=== PATIENT | female | born 1970 | race Caucasian/White ===

== ENCOUNTER 2016-07-31 20:31 | Inpatient (IN) | payer OTHER ==
[2016-07-31] VITALS (7 sets, daily range): BP systolic 105–201; BP diastolic 68–136; PULSE 84–100; RESP 16–22; TEMP 97.7–98; O2SAT 97–98
[~2016-07-31 20:31] MED LIST: ARIP1TAB5; LEXA10TA; MUSCLE RELAXANT; Z.0.UNKNOWN
[2016-07-31] MEDS ORDERED: HEPARIN SODIUM - IV 10,000 UNITS/10 ML VIAL IV STA (20:53)
[2016-07-31] MEDS ORDERED: ASPIRIN 81 MG CHEW TAB PO STA (20:53)
[2016-07-31] MEDS ORDERED: NITROGLYCERIN 0.4 MG SL 25 TABS/BTL SL STA (20:53)
[2016-07-31] MEDS ORDERED: SODIUM CHLOR 0.9% 1000 ML INJ 1,000 ML IV ONE (20:53)
[2016-07-31] MEDS ORDERED: NITROGLYCERIN 0.4 MG SL 25 TABS/BTL SL ONE (20:57)
[2016-07-31] MEDS ORDERED: NITROGLYCERIN-DEXTROSE INJ 250 ML IV SCH ×2 (21:00→23:00)
[2016-07-31] MEDS ORDERED: SODIUM CHLORIDE 0.9% FLUSH 10 ML FLUSH IVF PRN (21:00)
[2016-07-31] MEDS ORDERED: ONDANSETRON HCL 4 MG/2 ML VIAL ONE (21:02)
--- NOTE | 2016-07-31 21:10 | PD ---
HPI Chief Complaint: Chest Pain Time Seen by Provider: 20:46 Travel History International Travel<30 days: No Contact w/Intl Traveler<30days: No Traveled to known affect area: No History of Present Illness HPI The patient is a 46 year old female who presents to the [facility] emergency department with a history of chest pain that she reports began at 7 PM while she was sitting on the couch. She reports that this is the second time that she's had this chest pain. She reports that she had it for the first time on Saturday and after 30 minutes it resolved. On this occasion it started to resolve after she went to lie down, however the pain then recurred again. She reports that she has diaphoresis associated with it. She reports that the pain is a pressure sensation in the left side of her chest. The patient reports that she has radiation of pain down the right arm and involving the left shoulder. She reports that the pain is a pressure sensation and is a 10 out of 10 in severity prior to arrival, however on arrival back to the emergency department that it is now a 3 out of 10 in severity. Or to having associated shortness of breath. She reports having associated diaphoresis, nausea and vomiting 4. The patient's past medical history is significant for hypertension, tobacco use, and a family history of heart disease in her dad. She denies any known history of hyperlipidemia or diabetes mellitus. She denies using any illicit drugs. The patient denies any recent history of fevers , cough, congestion, abdominal pain, diarrhea, urinary symptoms, or neurologic symptoms. LMP: 2 weeks ago [facility] Past Medical History Narrative Medical The patient's past medical history is significant for hypertension, fibromyalgia , interstitial cystitis. Blood Disorders: No Bipolar Disorder: Yes Cancer: No Cardiovascular Problems: No Diminished Hearing: No Endocrine: No Fibromyalgia: Yes Genitourinary: No Hypertension: Yes Immune Disorder: No Medical other: Yes (Interstital cystitis) Musculoskeletal: No Neurologic: Yes (FIBROMYALGIA) Psychiatric: No Reproductive: No Respiratory: No ?: Not LMP: 07/16/16 : 2 Para: 2 Miscarriage: 0 : 0 Tubal Ligation: Yes Past Surgical History Narrative Surgical The patient's past surgical history is significant for bilateral tubal ligation. Surgical History: No Previous Surgery Arteriovenous Shunt: No Insulin Pump: No Pacemaker: No Social History Alcohol Use: Yes (2-3 times per week 2-3 drinks at a time) Alcohol Use: No Tobacco Use: Yes (one half pack per day) Substance Use: No Allergies-Medications (Allergen,Severity, Reaction): Coded Allergies: No Known Allergies (Verified Allergy, Mild, 01/12/07) Reported Meds & Prescriptions Reported Meds & Active Scripts Active Reported [Muscle Relaxant ] Abilify (Aripiprazole) 10 Mg Tab Lexapro (Escitalopram Oxalate) 10 Mg Tab Unknown Meds (Miscellaneous Medication) Misc Review of Systems Except as stated in HPI: all other systems reviewed are Neg General / Constitutional: No: Fever Eyes: No: Visual changes HENT: No: Headaches Cardiovascular: Positive: Chest Pain or Discomfort, Diaphoresis, Dyspnea on exertion Respiratory: Positive: Shortness of Breath Gastrointestinal: Positive: Nausea, Vomiting, No: Diarrhea, Abdominal Pain, Changes in Bowel Habits, Indigestion, Loss of Appetite Genitourinary: No: Dysuria Musculoskeletal: No: Pain Skin: No Rash Neurologic: No: Weakness, Focal Abnormalities, Change in Mentation, Slurred Speech, Sensory Disturbance Psychiatric: No: Depression Endocrine: No: Polydipsia Hematologic/Lymphatic: No: Easy Bruising Physical Exam Narrative General: The patient is a well-developed well-nourished female, uncomfortable appearing on arrival, initially diaphoretic. The patient reports having continued nausea. Head and Neck exam: Head is normocephalic atraumatic. Eyes: EOMI, pupils are equal round and reactive to light. Nose: Midline septum with pink mucous membranes Mouth: Dentition unremarkable. Moist mucus membranes. Posterior oropharynx is not erythematous. No tonsillar hypertrophy. Uvula midline. Airway patent. Neck: No palpable lymphadenopathy. No nuchal rigidity. No thyromegaly. Cardiovascular: Regular rate and rhythm without murmurs, gallops, or rubs. No pulse deficit to the extremities and simultaneous auscultation and palpation of her radial artery. Lungs: Clear to auscultation bilaterally. No wheezes, rhonchi, or rales. Abdomen: Soft, without tenderness to palpation in all 4 quadrants of the abdomen. No guarding, rebound, or rigidity. Normal bowel sounds are audible. No tenderness on palpation of McBurney's point. Negative [place] sign. Extremities: No clubbing, cyanosis, or edema. 2+ pulses in all 4 extremities. No calf tenderness on palpation. Back: No costovertebral angle tenderness to palpation. Neurologic Exam: Grossly nonfocal. Skin Exam: No rash noted. Intact skin that is warm and damp. Data Data Last Documented VS Vital Signs Date Time Temp Pulse Resp B/P Pulse Ox O2 Delivery O2 Flow Rate FiO2 07/31/16 21:19 97 Nasal Cannula 4 07/31/16 21:19 94 18 154/107 07/31/16 20:44 98.0 Orders Troponin I (07/31/16 20:53) Ckmb (Isoenzyme) Profile (07/31/16 20:53) Complete Blood Count With Diff (07/31/16 20:53) I-Stat Profile (07/31/16 20:53) I-Stat Creatinine (07/31/16 20:53) Calcium (07/31/16 20:53) Magnesium (Mg) (07/31/16 20:53) Prothrombin Time / Inr (Pt) (07/31/16 20:53) Act Partial Throm Time (Ptt) (07/31/16 20:53) B-Type Natriuretic Peptide (07/31/16 20:53) Chest, Single Ap (07/31/16 20:53) Electrocardiogram (07/31/16 20:53) Oxygen Administration (07/31/16 20:53) Iv Access Insert/Monitor (07/31/16 20:53) Oximetry (07/31/16 20:53) Sodium Chlor 0.9% 1000 Ml Inj (Ns 1000 M (07/31/16 20:53) Sodium Chloride 0.9% Flush (Ns Flush) (07/31/16 21:00) Aspirin Chew (Aspirin Chew) (07/31/16 20:53) Nitroglycerin Sl (Nitrostat Sl) (07/31/16 20:53) Nitroglycerin-Dextrose Inj (Nitroglyceri (07/31/16 21:00) Heparin Inj (Heparin Inj) (07/31/16 20:53) Ed Urine Pregnancytest Poc (07/31/16 20:53) Drug Screen, Random Urine (07/31/16 20:53) Alcohol (Ethanol) (07/31/16 20:53) Urinalysis - C+S If Indicated (07/31/16 20:53) Nitroglycerin Sl (Nitrostat Sl) (07/31/16 20:57) Ondansetron Inj (Zofran Inj) (07/31/16 21:02) Labs Laboratory Tests Test 07/31/16 20:53 Bedside Hemoglobin 16.7 G/DL Bedside Hematocrit 49.0 % Bedside Sodium 137 MMOL/L Bedside Potassium 3.7 MMOL/L Bedside Chloride 101 MMOL/L Bedside Blood Urea Nitrogen 24 MG/DL Bedside Creatinine 1.1 MG/DL Bedside Glucose 117 MG/DL MDM Medical Decision Making Medical Screen Exam Complete: Yes Emergency Medical Condition: Yes Medical Record Reviewed: Yes Interpretation(s) Laboratory Tests Test 07/31/16 20:53 Bedside Sodium 137 MMOL/L (138-146) Bedside Creatinine 1.1 MG/DL (0.6-1.0) Bedside Glucose 117 MG/DL (60-95) Differential Diagnosis STEMI, versus non-STEMI, versus acid reflux, versus pericarditis, versus aortic dissection Narrative Course During the course of the patients emergency department visit, the patients history, examination, and differential diagnosis were reviewed with the patient. The patient had IV access obtained and blood work sent for analysis. The patient was placed on a design engineer agricultural equipment with oximetry and blood pressure monitoring. An EKG was done on arrival. The patient's EKG reveals a heart rate of [address] segment elevation of 2-3 mm in V1, V2 with deep T waves associated with this. A STEMI alert was called immediately when the ECG was evaluated. The patient was initially provided aspirin 324 mg by mouth 1, nitroglycerin sublingual times one will nitroglycerin drip was prepared. The patient was given Zofran 4 mg IV. The patient was given heparin 4000 units IV per protocol. The patients laboratory studies were reviewed and remarkable for an i-STAT with creatinine that reveals a normal hemoglobin, creatinine 1.1. Radiology studies were reviewed and remarkable for a chest x-ray that shows no acute abnormality. I accompanied the patient up to the cardiac catheterization lab and transferred the patient's care over to Dr. Casiano. The patients results were discussed with the patient, including the plan of care. I explained that further testing and/ or monitoring is indicated based on the patients history, examination, and/ or laboratory findings. Therefore, I recommended admission for additional evaluation. The patient expressed understanding and was agreeable with this plan. The patient was admitted to the hospital in guarded condition and sent to a bed under the care of the silk snapper. Physician Communication Physician Communication A STEMI alert was called at 2053, Dr. Casiano the silk snapper communication studies professor was called at 2054. He did agree to take the patient to the cardiac catheterization lab. Diagnosis Primary Impression: STEMI (ST elevation myocardial infarction) Qualified Code: I21.3 - ST elevation myocardial infarction (STEMI), unspecified artery Admitting Information Admitting Physician Requests: Admit Mercedes Cabrera MD July 31, 2016 21:10
[2016-07-31 21:28] LABS: I-STAT POTASSIUM 3.7 MMOL/L (3.5-4.9); I-STAT SODIUM 137 MMOL/L (138-146)
[2016-07-31] MEDS ORDERED: IOHEXOL 350 MG/ML 100 ML BTL (for Cath Lab) OTHER ONE (21:28)
[2016-07-31 21:31] LABS: AUTOMATED NEUTROPHIL # 7.5 TH/MM3 (1.8-7.7); BASOPHIL # 0.2 TH/MM3 (0-0.2); BASOPHIL % 1.6 % (0.0-2.0); EOSINOPHIL # 0.1 TH/MM3 (0-0.4); EOSINOPHIL % 0.7 % (0.0-4.0); HEMATOCRIT 48.7 % (35.0-46.0); HEMO FLAGS DIFF FINAL; LYMPH % 31.2 % (9.0-44.0); LYMPHOCYTE # 3.8 TH/MM3 (1.0-4.8); MEAN CELL VOLUME 96.2 FL (80.0-100.0); MEAN CORPUSCULAR HEMOGLOBIN 32.7 PG (27.0-34.0); MONO % 4.2 % (0.0-8.0); NEUT % 62.3 % (16.0-70.0); PLATELET COUNT 211 TH/MM3 (150-450); RED BLOOD COUNT 5.06 MIL/MM3 (4.00-5.30); RED CELL DISTRIBUTION WIDTH 13.5 % (11.6-17.2); WHITE BLOOD COUNT 12.1 TH/MM3 (4.0-11.0)
[2016-07-31 21:33] LABS: BACTERIA, URINE RARE /hpf; BLOOD, URINE NEG (NEG); COMMENT (UR) CULT NOT INDICATED; CULTURE IF INDICATED CULT NOT INDICATED; GLUCOSE,URINE NEG (NEG); KETONE, URINE NEG (NEG); MUCUS URINE FEW /lpf (OCC); NITRITE,URINE NEG (NEG); PH, URINE 5.5 (5.0-8.5); SQUAMOUS EPITHELIAL CELL URINE 3 /hpf (0-5); URINE COLOR YELLOW (YELLW/STRAW)
[2016-07-31] MEDS ORDERED: HEPARIN-NS/PF INJ 500 ML ONE (21:35)
[2016-07-31] MEDS ORDERED: MIDAZOLAM HCL 2 MG/2 ML VIAL ONE (21:36)
[2016-07-31] MEDS ORDERED: NITROGLYCERIN INJ 5 ML ONE (21:36)
[2016-07-31] MEDS ORDERED: HEPARIN SODIUM - IV 10,000 UNITS/10 ML VIAL ONE (21:36)
[2016-07-31 21:40] LABS: APTT (PATIENT) 22.9 SEC (24.3-30.1); INTERNATIONAL NORMALIZED RATIO 0.9 RATIO; PROTHROMBIN TIME - PATIENT 9.8 SEC (9.8-11.6)
[2016-07-31 21:43] LABS: AMPHETAMINE, URINE NEG (NEG); BARBITURATES, URINE NEG (NEG); COCAINE, URINE NEG (NEG)
--- NOTE | 2016-07-31 21:43 | RADRPT ---
EXAM DATE/TIME: 07/31/2016 21:04 [place] COMPARISON: No previous studies available for comparison. INDICATIONS : Stemi alert. MEDICAL HISTORY : Unobtainble. SURGICAL HISTORY : Unobtainble. ENCOUNTER: Initial ACUITY: 1 day PAIN SCORE: 4/10 LOCATION: Bilateral chest FINDINGS: A single view of the chest demonstrates the lungs to be symmetrically aerated without evidence of mas s, infiltrate or effusion. The cardiomediastinal contours are unremarkable. Osseous structures are intact. CONCLUSION: No acute disease. Ren Dos Santos MD on July 31, 2016 at 21:41 Board Certified Radiologist. This report was verified electronically.
[2016-07-31] MEDS ORDERED: hydrALAZINE HCL 20 MG/ML VIAL ONE (21:48)
[2016-07-31 21:54] LABS: MAGNESIUM 2.3 MG/DL (1.5-2.5)
[2016-07-31 21:57] LABS: CREATINE KINASE 94 U/L (26-192)
[2016-07-31] MEDS ORDERED: MORPHINE SULFATE 8 MG/ML INJ ONE (22:23)
--- NOTE | 2016-07-31 22:57 | CATHPROC ---
[employer] HIS Report Study Information Study Number Admission Scheduled Start Study Start [id number] 07/31/2016 07/31/2016 Jul 31 2016 9:31PM Study Type Left/Possible PCI Referring Institution Admit Source Facility Department 1 Emergency department [facility] [employer] [facility] Physician and Clinical Staff Initial Yosi Perdue Day Habilitation SupervisorHeather Richardson RN Day Habilitation SupervisorPiper Jean Baptiste RN Other Jose Miguel Mckeon RCIS(BS) Recorder Chyna Mead RCIS TECH2 Scrub César Castellanos RT(R) Procedures Performed Procedure Location (Site) Vessel Name Coronary Angiograms LCA Left Coronary Coronary Angiograms RCA Right Coronary L Heart Cath LV Gram-hand inj. LV LV Ventricle Wire insertion Fem Art (right) Femoral Art Equipment Time Pants Maker Description Size Mfg Part Number Used/Scraped TRANSDUCER, TRUWAVE 21:42 WINTER GONZALEZ * [id number] Used W/CloudAccessCK INTRODUCER SET, [id number]-502-10.0- 21:44 [employer] FR 5 Used MICROPUNCTURE, STIFFENED SC-NT-U-SST 21:42 [employer] PACK, CCL CUSTOM * [id number] Used 21:50 MED[employer]ON[employer]/AVE EBU 3.5 Z2 GUIDE CATHETER FR 6 [id number] Used 21:53 [employer]/AVE EBU 4.0 SH Z2 GUIDE CATHETER FR 6 [id number] Used [id number] 21:42 [employer] MEDICAL SHEATH, FR6.5 PRELUDE 11CM FR 6.5 Used [id number] 21:42 [employer] MEDICAL WIRE, 3MMJ .035 180CM 180CM [id number] Used 21:42 NAMIC MANIFOLD, 4 PORT * [id number] Used 21:42 [employer]COMED OMNIPAQUE, 350 MG, 100ML 100ML [id number] Used 21:42 [email or web address] MEDICAL BLANKET,WARM AIR CCL * [id number] Used Equipment Model, Serial, Lot Number and Expiration Data Description Model Number Serial Number Lot Number Expiration Da te EBU 3.5 Z2 GUIDE CATHETER [id number] 06-22-2018 EBU 4.0 SH Z2 GUIDE CATHETER [id number] 03-14-2018 History: Current Medications Medication Dosage/Unit Route Frequency Last Date/Time Taken LEXAPRO History: Allergies Allergy Reaction NKDA History: Risk Factors Family History of Hypertension Dyslipidemia Previous IN Previous Heart Failure Premature CAD Yes No Yes No No Prior Valve Prior PCI Prior CABG Surgery No No No Cerebrovascular Peripheral Artery Chronic Lung On Dialysis Diabetes Disease Disease Disease No No No No No History: Symptoms/Diagnosis Selection Items Chest pain SOB History: Stress Tests Stress or Imaging Studies Performed No History: Other Current Smoker Method Packs a Day Years Used Pack Years Yes Cigarettes 1 30 30 Labs Hgb (g/dl) Hct (%) RBC (MIL/MM3) WBC (l/cumm) Platelets (thousands) 12.00-18.00 37.00-55.00 4.80-6.20 4.80-10.80 140.00-450.00 16.6 48.7 5 12.1 211 Glucose (mg/dl) BUN (mg/dl) Creatinine (mg/dl) BUN:Creatinine (1:x) 60.00-110.00 8.00-20.00 0.10-9.00 10.00-20.00 117 24 1.1 21.8 Na (meq/l) K (meq/l) Cl (meq/l) Ca (mg/dl) 138.00-146.00 3.80-5.10 101.00-111.00 9.00-10.50 137 3.7 101 9.4 PT (sec) PTT (sec) INR (PTT:PT) 9.40-11.40 25.10-32.70 0.50-2.00 9.8 22.9 0.9 Troponin I (ng/ml) CPK (u/l) CPK-MB (ng/ML) 0.40-2.30 37.00-289.00 0.00-7.00 0.06 94 Not Drawn Medication Medication Total Dose (Bolus/Oral) Medication Total Dosage/Unit 1% XYLOCAINE 20 mL APRESOLINE 10 mg FENTANYL 25 mcg MORPHINE 2 mg NTG (IC) 200 mcg OXYGEN 2 l/min VERSED 0.5 mg Medications (Bolus/Oral) Medication Time Given Dosage/Unit Administered By Reason OXYGEN 07/31/2016 9:33:38 PM 2 l/min Heather Gonzalez Patient arrived on 2 l/min OXYGEN given by Heather Gonzalez, MANASA via Nasal. VERSED 07/31/2016 9:40:09 PM 0.5 mg Heather Gonzalez Patient arrived on 0.5 mg VERSED given by Heather Gonzalez RN in Left Antecubital via Peripheral IV . Ordered by Yosi Casiano. FENTANYL 07/31/2016 9:41:10 PM 25 mcg Heather Gonzalez Patient arrived on 25 mcg FENTANYL given by Heather Gonzalez RN via Peripheral IV. 1% XYLOCAINE 07/31/2016 9:41:11 PM 20 mL Heather Gonzalez Patient arrived on 20 mL 1% XYLOCAINE given by Heather Gonzalez RN via Subcutaneous. APRESOLINE 07/31/2016 9:49:09 PM 10 mg Heather Gonzalez 10 mg APRESOLINE given in lab by Heather Gonzalez RN in Left Antecubital via Peripheral IV. Ordered by Yosi Casiano. NTG (IC) 07/31/2016 10:14:37 PM 200 mcg Yosi Casiano 200 mcg NTG (IC) given in lab by Yosi Casiano via Intra-coronary. Ordered by Yosi Casiano. MORPHINE 07/31/2016 10:24:19 PM 2 mg Heather Gonzalez 2 mg MORPHINE given in lab by Heather Gonzalez RN in Left Antecubital via Peripheral IV. Ordered by Yosi Casiano. Medication (Drip) Medication Time Given Dosage/Unit Concentration/Unit Diluent (ml) Solution IV Solutions 07/31/2016 9:33:44 PM 0 mL (IV) 1000 NaCl .9 Patient arrived on IV Solutions given by Heahter Gonzalez RN in Left Antecubital via Peripheral IV. Pump/Drip Flow = 20 ml/hr using NaCl .9. NITROGLYCERIN DRIP 07/31/2016 9:33:58 PM 10 mcg/min 50 mg 250 D5W Patient arrived on 10 mcg/min NITROGLYCERIN DRIP given by Heather Gonzalez RN in Left Antecubital v ia Peripheral IV. Pump/Drip Flow = 3 ml/hr using D5W with a concentration of 50 mg in 250 ml. NITROGLYCERIN DRIP 07/31/2016 9:57:53 PM 15 mcg/min 50 mg 250 D5W 15 mcg/min NITROGLYCERIN DRIP given in lab by Heather Gonzalez RN in Left Antecubital via Periphera l IV. Pump/Drip Flow = 4.5 ml/hr using D5W with a concentration of 50 mg in 250 ml. Ordered by Yosi Casiano. Initial Case Assessment Cardiovascular HR Rhythm NIBP Chest Pain 95 SR 159/103 0 Circulatory - Right Pulses Dorsalis Pedis Femoral 3 3 Scale (0,1,2,3,4,d) Circulatory - Left Pulses Dorsalis Pedis Femoral 3 3 Scale (0,1,2,3,4,d) Neurological State Oriented to time-place- Alert Moves all extremities person Respiration - General Respiration Rate SpO2 (%) O2 (lpm) (B/min) 25 99 2 Final Case Assessment Cardiovascular HR Rhythm NIBP Chest Pain 95 sr 125/89 0 Circulatory - Right Pulses Dorsalis Pedis Femoral 3 3 Scale (0,1,2,3,4,d) Circulatory - Left Pulses Dorsalis Pedis Femoral 3 3 Scale (0,1,2,3,4,d) Neurological State Oriented to time-place- Alert Moves all extremities person Respiration - General Respiration Rate SpO2 (%) (B/min) 9 97 Chronological Log Time Study Chronological Log 21:25:51 MD arrived. 21:28:51 Patient arrived directly from ER. 21:28:59 Patient Name, D.O.B, / Armband Verified By R.N. 21:31:12 Consent signed by the physician and the patient and verified by the [employer] [facility] staff. 21:31:13 Pre-op and post- op instructions given; patient acknowledges understanding of instructions. 21:31:26 Verbal Stimulation=2 Physical Stimulation=2 Airway=2 Respiration=2 TOTAL=8. (0=absent, 1=li mited, 2=present) Vitals capture started with the following parameters, Patient=Adult, Interval=15 min, Initial P acbdqip=317 mmHg, :32:58 Deflation Rate=5 mmHg 21:33:28 Vitals capture stopped. 21:33:34 Presedation assessment performed by [employer] RN. 21:33:36 Patient has been NPO for More than 6Hrs. 21:33:36 Skin Breakdown-NONE 21:33:38 Patient arrived on 2 l/min OXYGEN given by Heather Gonzalez, RN via Nasal. 21:33:39 Patient arrived with Disposable Defibrillator Pads in place. 21:33:40 Alice Prominences Protected 21:33:42 A # 20 IV was noted in the Antecubital (right). Grade = SALINE LOCKED 21:33:43 A # 20 IV was noted in the Antecubital (left). Grade = PATENT Patient arrived on IV Solutions given by Heather Gonzalez RN in Left Antecubital via Peripher al IV. Pump/Drip Flow = :33:44 20 ml/hr using NaCl .9. Patient arrived on 10 mcg/min NITROGLYCERIN DRIP given by Heather Gonzalez RN in Left Antecub ital via 21:33:58 Peripheral IV. Pump/Drip Flow = 3 ml/hr using D5W with a concentration of 50 mg in 250 ml. 21:33:59 History and physical on the chart or being dictated. 21:34:43 Bilateral groins prepped with 2% chlorhexidine, and with a 3 min. waiting time. Vitals capture started with the following parameters, Patient=Adult, Interval=15 min, Initial P ilbgucl=167 mmHg, :38:59 Deflation Rate=5 mmHg 21:39:33 HR=95 bpm, LHHK=934/103 mmhg, SpO2=99.0 %, Resp=25 B/min Assessment: Initial Case, HR=95 BPM, Rhythm=SR, ERNJ=585/103 mmhg, Chest Pain=0 Right Pulses: Shine Ped=3, Femoral=3 21:39:57 Left Pulses: Shine Ped=3, Femoral=3 Neurological: State=Alert, Ox3, LAM Respiration: Resp=25 B/min, SpO2=99 %, O2=2 lpm Patient arrived on 0.5 mg VERSED given by Heather Gonzalez RN in Left Antecubital via Periphe ral IV. Ordered by 21:40:09 Yosi Casiano. 21:40:57 Pressure channel 1 zeroed. Time Out. Correct patient, correct procedure,correct physician, power injector not loaded with contrast with surgical 21:41:06 team present. Time Out Concurred by MD and individual staff in procedure 21:41:10 Patient arrived on 25 mcg FENTANYL given by Heather Gonzalez RN via Peripheral IV. 21:41:11 Case Start :41:11 Patient arrived on 20 mL 1% XYLOCAINE given by Heather Gonzalez RN via Subcutaneous. 21:43:03 Access site was Femoral Artery. RIGHT A INTRODUCER SET, MICROPUNCTURE, STIFFENED FR 5 was advanced into the Fem Art (right) using the :43:18 Percutaneous technique. 21:44:08 An injection in the Fem Art (right) was made through the INTRODUCER SET, MICROPUNCTURE, STI FFENED FR 5. 21:44:34 HR=81 bpm, QLSA=470/118 mmhg, NuM8=596.0 %, Resp=25 B/min 21:46:28 A WIRE, 3MMJ .035 180CM 180CM was inserted via Fem Art (right). A SHEATH, FR6.5 PRELUDE 11CM FR 6.5 was exchanged in the Fem Art (right). This was necessary in order to 21:46:33 accomodate a larger catheter. A JR 4.0 INFINITI CATHETER FR 6 was advanced over a wire. OMNIPAQUE, 350 MG, 100ML 100ML was us ed for 21:46:42 injections. 21:47:10 Reference ECG taken Recorded Pressure: Ao, HR=79, Condition=Condition 1 21:47:14 (Aorta) Ao 183/109/139 21:48:08 The RCA was injected and visualized at various angles. OMNIPAQUE, 350 MG, 100ML 100ML used . Recorded Pressure: LV, HR=82, Condition=Condition 1 21:48:59 (Left Ventricle) LV 173/5/14 10 mg APRESOLINE given in lab by Heather Gonzalez, MANASA in Left Antecubital via Peripheral IV. O rdered by Oh 21:49:09 Yosi. 21:49:24 The LV was manually injected with 10 cc's and visualized. OMNIPAQUE, 350 MG, 100ML 100ML us ed. 21:49:37 HR=83 bpm, QVZP=506/111 mmhg, XaM5=780.0 %, Resp=19 B/min Recorded Pressure: LV, Ao, HR=82, Condition=Condition 1 21:49:40 (Left Ventricle) LV 167/1/11, (Aorta) Ao 168/109/135 After removing the current catheter a EBU 3.5 Z2 GUIDE CATHETER FR 6 was advanced over a WIRE, 3MMJ .035 21:49:51 180CM 180CM. OMNIPAQUE, 350 MG, 100ML 100ML was used for injections. After removing the current catheter a EBU 4.0 SH Z2 GUIDE CATHETER FR 6 was advanced over a WIR E, 3MMJ .035 21:54:12 180CM 180CM. OMNIPAQUE, 350 MG, 100ML 100ML was used for injections. Unable to cannulate LCA. 21:54:34 HR=89 bpm, JEDQ=417/116 mmhg, XcX9=907.0 %, Resp=13 B/min 21:55:47 Patient complaining of chest pressure 21:56:00 The LCA was injected and visualized at various angles. OMNIPAQUE, 350 MG, 100ML 100ML used . 15 mcg/min NITROGLYCERIN DRIP given in lab by Heather Gonzalez, MANASA in Left Antecubital via Per ipheral IV. 21:57:53 Pump/Drip Flow = 4.5 ml/hr using D5W with a concentration of 50 mg in 250 ml. Ordered by Yosi Adamson. 21:59:35 QH=782 bpm, XRIK=348/113 mmhg, EaT0=950.0 %, Resp=20 B/min 22:02:55 Catheter was removed 22:04:38 QI=442 bpm, ALMY=242/106 mmhg, ExQ1=012.0 %, Resp=20 B/min 22:09:35 HQ=719 bpm, LCRI=830/96 mmhg, AlW6=350.0 %, Resp=16 B/min A JL 4.0 INFINITI CATHETER FR 6 was advanced over a wire. OMNIPAQUE, 350 MG, 100ML 100ML was us ed for 22:12:16 injections. 22:14:34 HR=97 bpm, RZYJ=229/87 mmhg, OhG5=628.0 %, Resp=18 B/min 22:14:37 200 mcg NTG (IC) given in lab by Yosi Casiano via Intra-coronary. Ordered by Yosi Casiano. 22:15:34 The LCA was injected and visualized at various angles. OMNIPAQUE, 350 MG, 100ML 100ML used . 22:18:22 Catheter was removed 22:19:36 XT=131 bpm, YADK=046/86 mmhg, SpO2=99.0 %, Resp=18 B/min 22:22:16 Activated Clotting Time Drawn 2 mg MORPHINE given in lab by Heather Gonzalez, RN in Left Antecubital via Peripheral IV. Orde red by Oh, 22:24:19 Yosi. 22:24:35 HR=97 bpm, IZDC=190/100 mmhg, SpO2=98.0 %, Resp=18 B/min 22:27:01 ACT (Normal Range 90-180) = 140 22:27:26 Case End 22:27:30 Sheath removed; pressure applied to access site. 22:29:36 HR=95 bpm, GNHD=787/97 mmhg, SpO2=98.0 %, Resp=15 B/min 22:34:35 HR=92 bpm, BMWE=100/97 mmhg, SpO2=99.0 %, Resp=12 B/min 22:39:40 HR=93 bpm, GBEQ=163/77 mmhg, SpO2=97.0 %, Resp=17 B/min 22:44:33 HR=95 bpm, NTIJ=932/89 mmhg, SpO2=97.0 %, Resp=9 B/min 22:46:39 Hemostasis obtained 22:47:00 Sterile dressing applied to site 22:47:01 No case complications noted. 22:47:02 Cine recording checked. 22:47:03 Bedside Report will be given. Assessment: Final Case, HR=95 BPM, Rhythm=sr, FKBV=994/89 mmhg, Chest Pain=0 Right Pulses: Shine Ped=3, Femoral=3 22:47:10 Left Pulses: Shine Ped=3, Femoral=3 Neurological: State=Alert, Ox3, LAM Respiration: Resp=9 B/min, SpO2=97 % 22:48:21 Patient moved to bed 22:48:30 A Left Heart Cath was performed. 22:48:37 Clinical correlaton risk stratification. 22:49:17 Vitals capture stopped. 22:50:57 Patient transported to [facility] End Study - Contrast Media Used In Study Contrast Total Opened (mL) Total Used (mL) Total Wasted (mL) Omnipaque 60 60 0 End Study - Maximum Contrast Load Max Contrast Load (mL) 295.5 End Study - Radiation Exposure Fluoro Time (minutes) 4.1 End Study - Sheaths Sheaths Pulled By Sheath Hold Time (min) César Castellanos End Study - Patient Disposition Complications Transferred To Telemetry Bed
[2016-07-31] MEDS ORDERED: ONDANSETRON HCL 4 MG/2 ML VIAL IV PRN (23:00)
[2016-07-31] MEDS ORDERED: oxyCODONE/ACETAMINOPHEN 5 MG/325 MG TAB PO PRN (23:00)
[2016-07-31] MEDS ORDERED: MISC INFORMATION XX ONE (23:00)
--- NOTE | 2016-07-31 23:32 | MB ---
cc: YOSI HERNANDEZ DO DATE OF CONSULTATION 07/31/16 REASON FOR CONSULTATION Chest pain. HISTORY OF PRESENT ILLNESS Jeramie Mohamud is a pleasant 46-year-old female who presented to [facility] emergency room on July 31, 2016 due to chest pain. She states that she was sitting on the couch around 07:00 p.m. when the chest pain came on. She previously had an episode on July 30, that resolved after about 30 minutes, but today chest pain did not go away. She started getting diaphoretic with it. Pain was a pressure on the left side of her chest. It radiated down her right arm into her left shoulder. On arrival, pain was 10/10. She does not feel significantly short of breath with ut, Of note, she states that her blood pressure has been extensively high lately. She was in her primary care physician's office last week and her blood pressure was 190/90 and she was kept there until her blood pressure could be decreased. She was recently started on blood pressure medications. She states that she has been attempting to take them. PAST MEDICAL HISTORY 1. Hypertension 2. Fibromyalgia. 3. Interstitial cystitis. PAST SURGICAL HISTORY Bilateral tubal ligation. ALLERGIES NO KNOWN DRUG ALLERGIES. MEDICATIONS The patient is unsure of her medications at this time and this needs to be further clarified in the morning. FAMILY HISTORY Positive for coronary artery disease in her father. Denies sudden cardiac within the family. SOCIAL HISTORY The patient drinks two to three times per week and usually [id number] drinks at a time. Smokes half-a-pack of cigarettes a day. Denies illicit substance abuse. REVIEW OF SYSTEMS 14-systems were reviewed including osteopathic. Pertinent positives and negatives above otherwise negative. PHYSICAL EXAMINATION VITAL SIGNS: Temperature 98.0, heart rate 91, blood pressure 201/136, respirations 16, pulse ox 98% on room air. GENERAL: The patient appears in mild distress due to chest pressure. Alert, awake and oriented x3. HEENT: Extraocular muscles intact. Mucous membranes moist. NECK: Supple. No JVD at 45 degrees. No carotid bruits heard bilaterally. Carotid upstroke is brisk in nature. HEART: Regular rate and rhythm. Positive first and second heart sounds with no murmurs, gallops or rubs. PMI is nondisplaced. LUNGS: Clear to auscultation bilaterally. No wheezes, rales or rhonchi. ABDOMEN: Soft, nontender, nondistended. No organomegaly noted. EXTREMITIES: No clubbing, cyanosis or edema. Femoral and distal pulses are intact bilaterally. NEUROLOGIC: No focal deficits. SKIN: Warm, dry and intact. OSTEOPATHIC: No kyphoscoliosis, lordosis or paraspinal tender points. LABORATORY FINDINGS Hemoglobin 16.7, hematocrit 49.0, platelets 211. Potassium 3.7, creatinine 1.1, troponin 0.06. BNP 37. CARDIOLOGY STUDIES Electrocardiogram (July 31, 2016 at 20:40) sinus rhythm, LVH, significant T-wave inversions anteriorly concerning for ischemia. IMPRESSION 1. Chest pain concerning for coronary insufficiency. 2. EKG changes with deep T-wave inversions anterior concerning for possible ischemia. 3. EKG showing LVH, most likely secondary to prolonged hypertension 4. Malignant hypertension with a blood pressure of 201/136 on arrival. 5. Tobacco abuse. 6. Fibromyalgia. 7. Interstitial cystitis. RECOMMENDATIONS 1. Ms. Mohamud is currently presenting with chest pain which is concerning for coronary insufficiency and has significant EKG changes with deep T-wave inversions anteriorly which is concerning for a significant LAD lesion. Because of the continual chest pain, I feel that she should be taken emergently to the cardiac catheterization lab. 2. We will check a 2-D echo to look at her overall left ventricular function, cardiac structure and possible valvolpathies. 3. She will need significant blood pressure control as her blood pressure on arrival was 201/136. Further recommendations will be made after cardiac catheterization. Thank you for allowing me to see Jeramie Mohamud. If there are any questions, please do not hesitate to call. Yosi Hernandez DO VGP/SA /11:02 PM /11:20 PM
[2016-08-01] VITALS (26 sets, daily range): BP systolic 94–158; BP diastolic 63–99; PULSE 60–85; RESP 16–20; TEMP 97.9–98.5; O2SAT 97–100
[2016-08-01] MEDS: ATORVASTATIN 40 MG TAB PO SCH ×2 (00:30→20:11)
[2016-08-01] MEDS: METOPROLOL TARTRATE 25 MG TAB PO SCH ×3 (00:30→20:11)
--- NOTE | 2016-08-01 05:24 | MA ---
cc: HERNANDEZYOSI DO DATE OF PROCEDURE July 31, 2016 PROCEDURE Left heart catheterization, coronary angiogram, left ventricular angiogram, intracoronary injection of nitroglycerin, moderate sedation 30 minutes. PREPROCEDURE DIAGNOSES Chest pain concerning for coronary insufficiency. EKG changes concerning for significant angina. STEMI Alert. POSTPROCEDURE DIAGNOSES Hypertensive heart disease. Coronary bridging. Malignant hypertension. MEDICATIONS 1. Versed 0.5 mg. 2. Fentanyl 25 mcg. 3. Hydralazine 10 mg. 4. Morphine 2 mg. 5. Nitro 200 mcg intracoronary. 6. Nitro drip at 15 mcg per minute. CONTRAST USED 60 cc. FLUOROSCOPY 4.1 minutes. MODERATE SEDATION 30 minutes. PROCEDURAL SUMMARY Jeramie Mohamud is a pleasant 46-year-old female who originally presented with chest pain. EKG was thought to be ST-elevations anteriorly and a STEMI Alert was called. EKG does show marked T-wave inversions anteriorly concerning for Wellen's sign. With her continual chest pain and concerning EKG, it was felt that she should be taken to the [facility] emergently. The risks, benefits and alternatives were explained to her and she consented as such. She was prepped in the usual sterile fashion. Right femoral artery was accessed using a modified Seldinger technique and placement of a 6-Emirati sheath. This was easily aspirated and flushed. A JR-4 catheter was then advanced over a J-wire to the ascending aorta. This was used for selective angiography of the right coronary system. After angiography of the right coronary system, this was used to cross the aortic valve for measurement of the left ventricular pressure. On pullback across the aortic valve no significant gradient of aortic stenosis was noted. JR-4 was then exchanged for an EBU 3.5. This was felt to be too short for her to cross the aortic root and this was then exchanged for an EBU 4. This was used for selective angiography of the left coronary system. This was then removed and a JL-4 catheter was then placed and the patient was given 200 mcg of intracoronary nitroglycerin due to her hypertensive heart disease and coronary bridging. At this time that JL-4 was then removed. ACT was drawn and being that it was 140, her right femoral sheath was removed and pressure was held for hemostasis. Upon leaving the cardiac catheterization lab, Ms. Mohamud was chest pain-free, currently sating 98% on room air and a heart rate of 90. FINDINGS Left main is a normal-appearing vessel with good reflux into the aortic root. It appears to trifurcate into an LAD, ramus and circumflex. LAD is a medium-sized vessel with 30% diffuse disease in the midportion. It does give off one diagonal artery which is 1 mm to 1.5 mm at most that has an ostial to proximal lesion of 50%. Ramus is a medium-sized vessel with no significant disease throughout. It does appear to have a portion in the midsection which appears to have coronary bridging. Left circumflex is a nondominant vessel. Overall it has 10% disease in the midportion and tapers into a small obtuse marginal. Right coronary artery is a dominant vessel with no significant disease through the proximal to distal portion. It does give off one posterior lateral branch which is about 1 mm in size that has a 50% lesion. Left ventricular end-diastolic pressure 14. IMPRESSIONS 1. Angina secondary to malignant hypertension. 2. Malignant hypertension. 3. Significant coronary bridging of the ramus. 4. Mild to moderate coronary artery disease. 5. Tobacco abuse. RECOMMENDATIONS 1. On the catheterization, no significant coronary artery disease was found leading to her chest pain. The chest pain may be explained due to malignant hypertension and/or coronary bridging of her ramus vessel. 2. Chest pain went away when blood pressure was decreased. We will continue her on a nitro drip for which she is currently on 15 mcg per minute. This will be weaned off as her blood pressure is better controlled. 3. She will continue on aspirin, statin therapy as she does have significant coronary artery disease. 4. We will start her on beta yamile therapy due to her coronary bridging. 5. We will continue with medical management of her current mild to moderate coronary artery disease. 6. We will check a 2-D echo to look at her overall left ventricular function, cardiac structure and possible valopathies. 7. I discussed with her her current tobacco abuse for greater than 3 minutes. She states that she and her boyfriend will attempt to quit together. 8. Overall I feel that her significant concern is her malignant hypertension with hypertensive heart disease. Thank you for allowing me to see Jeramie Mohamud. If there are any questions please do not hesitate to call. Yosi Hernandez DO VGP/SSB /11:12 PM /5:04 AM
[2016-08-01] MEDS: ASPIRIN 81 MG CHEW TAB CHEW SCH (07:43)
[2016-08-01] MEDS: LISINOPRIL 10 MG TAB PO SCH (07:43)
[2016-08-01] MEDS: SODIUM CHLORIDE 0.9% FLUSH 10 ML FLUSH SCH ×2 (07:44→20:12)
[2016-08-01] MEDS: oxyCODONE/ACETAMINOPHEN 5 MG/325 MG TAB PO PRN ×2 (07:44→18:12)
--- NOTE | 2016-08-01 08:20 | PD.CONS ---
[facility] By Dr. Casiano Reason for Consult Medical management, hypertensive heart disease. Primary Care Physician Alex Gordon DO Diagnoses: (1) Hypertension (2) Coronary artery disease (3) Tobacco abuse (4) Angina pectoris History of Present Illness The patient is a 46-year-old female with history of hypertension who presented to the emergency department yesterday with complaint of chest pain that started yesterday evening. She reported that the pain was intermittent, lasting for over an hour total. Pain was rated 10/10. She described the pain as pressure in the left side of her chest. The pain radiated to her right arm and left shoulder. She describes associated diaphoresis, dyspnea, nausea, and vomiting. She had another episode of the pain this morning, but that improved with medication. No chest pain currently. Review of Systems Constitutional: COMPLAINS OF: Diaphoretic episodes, DENIES: Fever, Chills, Night Sweats Eyes: DENIES: Blurred vision, Vision loss Ears, nose, mouth, throat: DENIES: Hearing loss Respiratory: COMPLAINS OF: Shortness of breath, DENIES: Cough, Wheezing, Sputum production Cardiovascular: COMPLAINS OF: Chest pain, DENIES: Palpitations, Dyspnea on Exertion, Lower Extremity Edema Gastrointestinal: COMPLAINS OF: Nausea, Vomiting, DENIES: Abdominal pain, Constipation, Diarrhea Genitourinary: DENIES: Urinary frequency, Urinary incontinence, Urgency, Hematuria, Dysuria, Nocturia Musculoskeletal: DENIES: Joint pain, Muscle aches Integumentary: DENIES: Pruritus, Rash Hematologic/lymphatic: DENIES: Bruising Neurologic: COMPLAINS OF: Headache Past Family Social History Allergies: Coded Allergies: No Known Allergies (Verified , 01/12/07) Past Medical History Hypertension Fibromyalgia Coronary artery disease Past Surgical History Tubal ligation Cardiac catheterization (07/31/16) Reported Medications Lisinopril Clonidine 0.1 mg twice a day Family History She states that her biological father has heart disease, but she is not sure of her other family history. Social History She smokes one half pack per day. Drinks 1-2 alcoholic beverages most days. Denies illicit drug use. Physical Exam Vital Signs Vital Signs Date Time Temp Pulse Resp B/P Pulse Ox O2 Delivery O2 Flow Rate FiO2 08/01/16 07:00 66 08/01/16 07:00 97.9 64 16 158/99 98 08/01/16 05:00 72 08/01/16 04:00 63 127/84 97 08/01/16 04:00 62 08/01/16 03:00 98.0 64 18 130/83 100 08/01/16 03:00 85 08/01/16 02:00 68 08/01/16 02:00 64 102/67 97 08/01/16 01:30 64 94/63 98 08/01/16 01:00 69 104/67 97 08/01/16 01:00 70 08/01/16 00:30 75 107/75 98 08/01/16 00:00 79 107/70 98 08/01/16 00:00 80 07/31/16 23:45 85 107/68 97 07/31/16 23:30 84 113/69 97 07/31/16 23:15 88 105/71 97 07/31/16 23:00 98.0 87 18 130/83 97 07/31/16 23:00 85 07/31/16 21:19 97 Nasal Cannula 4 07/31/16 21:19 94 18 154/107 Nasal Cannula 4 07/31/16 20:47 Room Air 07/31/16 20:44 98.0 91 16 179/113 98 07/31/16 20:33 97.7 100 22 201/136 97 Room Air Physical Exam GENERAL: Well-nourished, well-developed female in no acute distress. HEENT: Normocephalic, atraumatic. Pupils equal, round and reactive. Extraocular movements intact. No scleral icterus. No injection or drainage. Oropharynx is clear. Mucous membranes are moist. CARDIOVASCULAR: Regular rate and rhythm without murmurs, gallops, or rubs. RESPIRATORY: Clear to auscultation. No wheezes, rales, or rhonchi. Breathing is non-labored. GASTROINTESTINAL: Abdomen soft, non-tender, nondistended. EXTREMITIES: No lower extremity edema. No calf tenderness. PSYCH: Alert and oriented x 3. Laboratory Laboratory Tests Test 07/31/16 07/31/16 07/31/16 20:50 20:53 21:00 White Blood Count 12.1 Red Blood Count 5.06 Hemoglobin 16.6 Hematocrit 48.7 Mean Corpuscular Volume 96.2 Mean Corpuscular Hemoglobin 32.7 Mean Corpuscular Hemoglobin 34.0 Concent Red Cell Distribution Width 13.5 Platelet Count 211 Mean Platelet Volume 10.7 Neutrophils (%) (Auto) 62.3 Lymphocytes (%) (Auto) 31.2 Monocytes (%) (Auto) 4.2 Eosinophils (%) (Auto) 0.7 Basophils (%) (Auto) 1.6 Neutrophils # (Auto) 7.5 Lymphocytes # (Auto) 3.8 Monocytes # (Auto) 0.5 Eosinophils # (Auto) 0.1 Basophils # (Auto) 0.2 CBC Comment DIFF FINAL Differential Comment Prothrombin Time 9.8 Prothromb Time International 0.9 Ratio Activated Partial 22.9 Thromboplast Time B-Type Natriuretic Peptide 37 Bedside Hemoglobin 16.7 Bedside Hematocrit 49.0 Bedside Sodium 137 Bedside Potassium 3.7 Bedside Chloride 101 Bedside Blood Urea Nitrogen 24 Bedside Creatinine 1.1 Bedside Glucose 117 Calcium Level 9.4 Magnesium Level 2.3 Total Creatine Kinase 94 Troponin I 0.06 Ethyl Alcohol Level LESS THAN 3 Urine Color YELLOW Urine Turbidity CLEAR Urine pH 5.5 Urine Specific Foster 1.021 Urine Protein TRACE Urine Glucose (UA) NEG Urine Ketones NEG Urine Occult Blood NEG Urine Nitrite NEG Urine Bilirubin NEG Urine Urobilinogen LESS THAN 2.0 Urine Leukocyte Esterase NEG Urine WBC 1 Urine Squamous Epithelial 3 Cells Urine Bacteria RARE Urine Mucus FEW Microscopic Urinalysis Comment CULT NOT INDICATED Urine Opiates Screen NEG Urine Barbiturates Screen NEG Urine Amphetamines Screen NEG Urine Benzodiazepines Screen NEG Urine Cocaine Screen NEG Urine Cannabinoids Screen POS Result Diagram: 07/31/162049 Imaging Last Impressions Chest X-Ray 07/31/162052 Signed Impressions: Service Date/Time: Sunday, July 31, 2016 21:04 - CONCLUSION: No acute disease. Ren Dos Santos MD Assessment and Plan Assessment and Plan 1. Chest pain: Does not appear to be STEMI. Status post cardiac catheterization. Patient does have coronary artery disease. Pain is likely anginal secondary to hypertension. Continue aspirin, blood pressure control, statin. 2. Malignant hypertension: Blood pressure remains elevated this morning. It was well controlled overnight. She has been placed back on nitroglycerin drip. Continue lisinopril, metoprolol. The patient had recently been started on clonidine and lisinopril by her PCP, and states that she had not missed any doses recently. 3. Coronary artery disease: Continue statin, aspirin, blood pressure control. 4. DVT prophylaxis: ZORAN Vega. Phu Pratt MD August 01, 2016 08:20
--- NOTE | 2016-08-01 08:45 | EKG ---
Date Performed: 07/31/2016 Time Performed: 20:40:33 PTAGE: 46 years EKG: Sinus rhythm MODERATE VOLTAGE CRITERIA FOR LVH, CONSIDER NORMAL VARIANT MARKED T-WAVE ABNORMALITY, CONSIDER ANTER IOR ISCHEMIA ABNORMAL ECG INTERPRETATION BASED ON A DEFAULT AGE OF 40 YEARS PREVIOUS TRACING : 07/07/2006 01.35 DOCTOR: Surjit Virk Interpretating Date/Time 08/01/2016 08:43:32
--- NOTE | 2016-08-01 10:36 | EC ---
Study Study Date:08/01/2016 STUDY CONCLUSIONS SUMMARY - Procedure narrative: Transthoracic echocardiography. Image quality was fair. Scanning was performed from the parasternal, apical, and subcostal acoustic windows. - Left ventricle: The cavity size was normal. Wall thickness was normal. Systolic function was vigorous. The estimated ejection fraction was in the range of 65% to 70%. Wall motion was normal; there were no regional wall motion abnormalities. - Mitral valve: Trace regurgitation. If LV function is below 40, please consider prescribing an ACEI or ARB or document rationale for non-use. PROCEDURE DATA STUDY STATUS: Elective. Procedure: Transthoracic echocardiography. Image quality was fair. Scanning was performed from the parasternal, apical, and subcostal acoustic windows. Study completion: The patient tolerated the procedure well. Transthoracic echocardiography. M-mode, complete 2D, complete spectral Doppler, and color Doppler. Height: Height: 61in. Weight: Weight: 142.7lb. Body mass index: BMI: 27kg/m^2. Body surface area: BSA: 1.64m^2. Patient status: Inpatient. CARDIAC ANATOMY LEFT VENTRICLE: The cavity size was normal. Wall thickness was normal. Systolic function was vigorous. The estimated ejection fraction was in the range of 65% to 70%. Wall motion was normal; there were no regional wall motion abnormalities. AORTIC VALVE: Trileaflet; normal thickness leaflets. Doppler: Transvalvular velocity was within the normal range. There was no stenosis. No regurgitation. Indexed valve area: 1.78cm^2/m^2 (Vmax). AORTA: Aortic root: The aortic root was normal in size. MITRAL VALVE: Structurally normal valve. Doppler: Transvalvular velocity was within the normal range. There was no evidence for stenosis. Trace regurgitation. Peak gradient: 3mm Hg (D). LEFT ATRIUM: The atrium was normal in size. RIGHT VENTRICLE: The cavity size was normal. Wall thickness was normal. PULMONIC VALVE: Doppler: Transvalvular velocity was within the normal range. There was no evidence for stenosis. No regurgitation. TRICUSPID VALVE: Structurally normal valve. Doppler: Transvalvular velocity was within the normal range. No regurgitation. PULMONARY ARTERY: The main pulmonary artery was normal-sized. Systolic pressure was within the normal range. RIGHT ATRIUM: The atrium was normal in size. PERICARDIUM: There was no pericardial effusion. SYSTEMIC VEINS: Inferior vena cava: The vessel was normal in size. Patient weight: 142.7lb _Ejection fraction:_ 65-75% _Fractional shortening:_ 32% up to 5Kg 5-11.5Kg 11.6-22.9Kg 23-45Kg 45-57Kg Aortic Root 7-13 <17 13-22 17-27 17-27 LA diam 6-13 <23 24-38 33-47 37-40 RVID 10-17 7-15 7-15 7-18 8-17 LVIDd 12-22 <32 24-38 33-47 37-40 LVPW 2-4 3-6 5-7 6-8 7-8 IVS 2-4 3-6 5-7 6-8 7-8 BASIC MEASUREMENTS ADULT NORMAL Left ventricle LV internal dimension, ED, chordal *33.3 mm 43-52 level, PLAX LV internal dimension, ES, chordal 26.8 mm 23-38 level, PLAX Fractional shortening, chordal level, *20 % >29 PLAX LV posterior wall thickness, ED 11.9 mm IVS/LVPW ratio, ED 0.98 <1.3 Ventricular septum Septal thickness, ED 11.7 mm Aortic valve Leaflet separation 19 mm 15-26 BASIC MEASUREMENTS ADULT NORMAL Aortic valve Leaflet separation 19 mm 15-26 Aorta Root diameter, ED 29 mm 20-37 Left atrium Anterior-posterior dimension, ES 28 mm 19-40 Anterior-posterior dimension index, ES 1.71 cm/m^2 <2.2 LA/aortic root ratio 0.97 DOPPLER MEASUREMENTS ADULT NORMAL Aortic valve Peak velocity, S 130 cm/s Valve area index, Vmax 1.78 cm^2/m^2 Regurgitant velocity, ED 193 cm/s Regurgitant deceleration 1260 cm/s^2 Regurgitant pressure half-time 448 ms Regurgitant gradient, ED 15 mm Hg Mitral valve Peak E-wave velocity 83.4 cm/s Peak A-wave velocity 97.7 cm/s Deceleration time *246 ms 150-230 Peak gradient, D 3 mm Hg Peak E/A ratio 0.9 Pulmonic valve Peak velocity, S 144 cm/s LEGEND: Mean values are shown as u=mean value. Asterisk (*) mars values outside specified normal range. Prepared and signed by Kumar Escamilla [id number]
[2016-08-01 10:38] LABS: BASOPHIL % 0.5 % (0.0-2.0); EOSINOPHIL # 0.1 TH/MM3 (0-0.4); EOSINOPHIL % 0.8 % (0.0-4.0); HEMATOCRIT 41.5 % (35.0-46.0); HEMO FLAGS DIFF FINAL; LYMPH % 21.6 % (9.0-44.0); LYMPHOCYTE # 2.4 TH/MM3 (1.0-4.8); MEAN CELL VOLUME 95.9 FL (80.0-100.0); MEAN CORPUSCULAR HEMOGLOBIN 31.7 PG (27.0-34.0); MONO % 4.4 % (0.0-8.0); NEUT % 72.7 % (16.0-70.0); PLATELET COUNT 167 TH/MM3 (150-450); RED BLOOD COUNT 4.33 MIL/MM3 (4.00-5.30); RED CELL DISTRIBUTION WIDTH 13.5 % (11.6-17.2)
--- NOTE | 2016-08-01 10:58 | PD.CARD.PN ---
Subjective Subjective Remarks Did well over night, then this morning had an elevation of her blood pressure and started to have chest pain 05/11, with a decrease of her blood pressure feels better Objective Medications Current Medications Medications (Trade) Dose Ordered Sig/Indu Route Start Time Stop Time Status Last Admin (NS Flush) 2 ml UNSCH PRN IVF 07/31/16 21:00 (NS Flush) 2 ml BID .XX 08/01/16 09:00 08/01/16 07:44 (Percocet 5-325 Mg) 1 tab Q4H PRN PO 07/31/16 23:00 08/01/16 07:44 (Percocet 5-325 Mg) 2 tab Q4H PRN PO 07/31/16 23:00 Ondansetron HCl 4 mg 4 mg Q4H PRN IV 07/31/16 23:00 (Nitroglycerin-Dextrose Inj) 250 ml @ 0 mls/hr TITRATE IV 07/31/16 23:00 (Aspirin Chew) 81 mg DAILY CHEW 08/01/16 09:00 08/01/16 07:43 (Lopressor) 25 mg Q12HR PO 07/31/16 23:00 08/01/16 07:43 (Lipitor) 40 mg HS PO 07/31/16 23:00 08/01/16 00:30 (Prinivil) 10 mg DAILY PO 08/01/16 09:00 08/01/16 07:43 Vital Signs / I&O Vital Signs Date Time Temp Pulse Resp B/P Pulse Ox O2 Delivery O2 Flow Rate FiO2 08/01/16 10:37 115/82 08/01/16 10:00 64 08/01/16 09:00 69 08/01/16 08:00 65 08/01/16 07:00 66 08/01/16 07:00 97.9 64 16 158/99 98 08/01/16 05:00 72 08/01/16 04:00 63 127/84 97 08/01/16 04:00 62 08/01/16 03:00 98.0 64 18 130/83 100 08/01/16 03:00 85 08/01/16 02:00 68 08/01/16 02:00 64 102/67 97 08/01/16 01:30 64 94/63 98 08/01/16 01:00 69 104/67 97 08/01/16 01:00 70 08/01/16 00:30 75 107/75 98 08/01/16 00:00 79 107/70 98 08/01/16 00:00 80 07/31/16 23:45 85 107/68 97 07/31/16 23:30 84 113/69 97 07/31/16 23:15 88 105/71 97 07/31/16 23:00 98.0 87 18 130/83 97 07/31/16 23:00 85 07/31/16 21:19 97 Nasal Cannula 4 07/31/16 21:19 94 18 154/107 Nasal Cannula 4 07/31/16 20:47 Room Air 07/31/16 20:44 98.0 91 16 179/113 98 07/31/16 20:33 97.7 100 22 201/136 97 Room Air I/O 07/31/16 07/31/16 07/31/16 08/01/16 08/01/16 08/01/16 07:00 15:00 23:00 07:00 15:00 23:00 Intake Total 480 ml Output Total 850 ml Balance -370 ml Intake Oral 480 ml Output Urine Total 850 ml Physical Exam GENERAL: NAD, AAOx3 SKIN: Warm and dry. HEAD: Atraumatic. Normocephalic. EYES: Pupils equal and round. No scleral icterus. No injection or drainage. ENT: No nasal bleeding or discharge. Mucous membranes pink and moist. NECK: Trachea midline. No JVD. CARDIOVASCULAR: Regular rate and rhythm. RESPIRATORY: No accessory muscle use. Clear to auscultation. Breath sounds equal bilaterally. GASTROINTESTINAL: Abdomen soft, non-tender, nondistended. Hepatic and splenic margins not palpable. MUSCULOSKELETAL: Extremities without clubbing, cyanosis, or edema. No obvious deformities. Right femoral no hematoma/bruit, neurovascularly intact distally NEUROLOGICAL: Awake and alert. No obvious cranial nerve deficits. Motor grossly within normal limits. Five out of 5 muscle strength in the arms and legs. Normal speech. PSYCHIATRIC: Appropriate mood and affect; insight and judgment normal. Laboratory Laboratory Tests Test 07/31/16 07/31/16 07/31/16 08/01/16 20:50 20:53 21:00 10:14 White Blood Count 12.1 TH/MM3 11.0 TH/MM3 Red Blood Count 5.06 MIL/MM3 4.33 MIL/MM3 Hemoglobin 16.6 GM/DL 13.7 GM/DL Hematocrit 48.7 % 41.5 % Mean Corpuscular Volume 96.2 FL 95.9 FL Mean Corpuscular Hemoglobin 32.7 PG 31.7 PG Mean Corpuscular Hemoglobin 34.0 % 33.0 % Concent Red Cell Distribution Width 13.5 % 13.5 % Platelet Count 211 TH/MM3 167 TH/MM3 Mean Platelet Volume 10.7 FL 10.5 FL Neutrophils (%) (Auto) 62.3 % 72.7 % Lymphocytes (%) (Auto) 31.2 % 21.6 % Monocytes (%) (Auto) 4.2 % 4.4 % Eosinophils (%) (Auto) 0.7 % 0.8 % Basophils (%) (Auto) 1.6 % 0.5 % Neutrophils # (Auto) 7.5 TH/MM3 8.0 TH/MM3 Lymphocytes # (Auto) 3.8 TH/MM3 2.4 TH/MM3 Monocytes # (Auto) 0.5 TH/MM3 0.5 TH/MM3 Eosinophils # (Auto) 0.1 TH/MM3 0.1 TH/MM3 Basophils # (Auto) 0.2 TH/MM3 0.0 TH/MM3 CBC Comment DIFF FINAL DIFF FINAL Differential Comment Prothrombin Time 9.8 SEC Prothromb Time International 0.9 RATIO Ratio Activated Partial 22.9 SEC Thromboplast Time B-Type Natriuretic Peptide 37 PG/ML Bedside Hemoglobin 16.7 G/DL Bedside Hematocrit 49.0 % Bedside Sodium 137 MMOL/L Bedside Potassium 3.7 MMOL/L Bedside Chloride 101 MMOL/L Bedside Blood Urea Nitrogen 24 MG/DL Bedside Creatinine 1.1 MG/DL Bedside Glucose 117 MG/DL Calcium Level 9.4 MG/DL Magnesium Level 2.3 MG/DL Total Creatine Kinase 94 U/L Troponin I 0.06 NG/ML Ethyl Alcohol Level LESS THAN 3 MG/DL Urine Color YELLOW Urine Turbidity CLEAR Urine pH 5.5 Urine Specific [place] 1.021 Urine Protein TRACE mg/dL Urine Glucose (UA) NEG mg/dL Urine Ketones NEG mg/dL Urine Occult Blood NEG Urine Nitrite NEG Urine Bilirubin NEG Urine Urobilinogen LESS THAN 2.0 MG/DL Urine Leukocyte Esterase NEG Urine WBC 1 /hpf Urine Squamous Epithelial 3 /hpf Cells Urine Bacteria RARE /hpf Urine Mucus FEW /lpf Microscopic Urinalysis Comment CULT NOT INDICATED Urine Opiates Screen NEG Urine Barbiturates Screen NEG Urine Amphetamines Screen NEG Urine Benzodiazepines Screen NEG Urine Cocaine Screen NEG Urine Cannabinoids Screen POS Assessment and Plan Problem List: (1) Malignant hypertension (2) Elevated troponin (3) Angina pectoris (4) Tobacco abuse (5) Coronary artery disease Assessment and Plan 1) Angina due to extensive HTN with coronary bridging 2) Blood pressure control, wean nitro as possible 3) Echo pending 4) Continue ASA 5) Add hydralazine PRN, increase blood pressure meds 6) Lopressor for coronary bridging Yosi Casiano DO August 01, 2016 10:58
[2016-08-01] MEDS ORDERED: hydrALAZINE HCL 20 MG/ML VIAL IV PUSH PRN (11:00)
[2016-08-01] MEDS ORDERED: amLODIPine BESYLATE 5 MG TAB PO ONE (11:00)
[2016-08-01 11:11] LABS: BICARBONATE 23.6 MEQ/L (21.0-32.0); POTASSIUM 3.5 MEQ/L (3.5-5.1)
[2016-08-02] VITALS (15 sets, daily range): BP systolic 115–158; BP diastolic 92–100; PULSE 60–80; RESP 15–20; TEMP 97.8–98.9; O2SAT 97–99
--- NOTE | 2016-08-02 08:38 | HHI.PR ---
Subjective Remarks Follow-up hypertension, chest pain. The patient states that she feels a lot better today. No chest pain currently. Does still have occasional dyspnea. Headache has resolved. Objective Vitals Vital Signs Date Time Temp Pulse Resp B/P Pulse Ox O2 Delivery O2 Flow Rate FiO2 08/02/16 06:00 64 08/02/16 05:00 63 08/02/16 04:00 61 08/02/16 03:00 64 08/02/16 03:00 97.9 78 20 115/92 98 08/02/16 02:00 64 08/02/16 01:00 60 08/02/16 00:00 66 08/01/16 23:00 98.5 71 20 133/86 98 08/01/16 23:00 73 08/01/16 22:00 80 08/01/16 21:00 72 08/01/16 20:09 18 08/01/16 20:00 98.3 75 18 154/98 99 08/01/16 20:00 73 08/01/16 19:00 72 08/01/16 18:00 70 08/01/16 17:00 64 08/01/16 16:00 72 08/01/16 15:00 65 08/01/16 15:00 98.0 64 16 128/82 97 08/01/16 14:00 70 08/01/16 13:00 68 08/01/16 12:00 60 08/01/16 11:00 98.2 68 17 120/70 98 08/01/16 11:00 75 08/01/16 10:37 115/82 08/01/16 10:00 64 08/01/16 09:00 69 I/O 08/01/16 08/01/16 08/01/16 08/02/16 08/02/16 08/02/16 07:00 15:00 23:00 07:00 15:00 23:00 Intake Total 480 ml 720 ml 360 ml Output Total 850 ml Balance -370 ml 720 ml 360 ml Intake Oral 480 ml 720 ml 360 ml Output Urine Total 850 ml # Voids 4 2 # Bowel Movements 1 0 Result Diagram: 08/01/16 1014 08/01/16 1014 Imaging Last Impressions Chest X-Ray 07/31/162052 Signed Impressions: Service Date/Time: Sunday, July 31, 2016 21:04 - CONCLUSION: No acute disease. Ren Dos Santos MD Objective Remarks General: No acute distress. Heart: Regular rate and rhythm. No murmur. Lungs: Clear to auscultation bilaterally. No wheezes, rales, or rhonchi. Breathing is nonlabored. Abdomen: Soft, nontender, nondistended. Extremities: No lower extremity edema. Psych: Alert and oriented. Procedures 07/31/16 cardiac catheterization Urinary Catheter: No Vascular Central Line Catheter: No A/P Problem List: (1) Hypertension ICD Code: I10 Status: Acute (2) Coronary artery disease ICD Code: I25.10 Status: Acute (3) Tobacco abuse ICD Code: Z72.0 Status: Acute (4) Angina pectoris ICD Code: I20.9 Status: Acute Assessment and Plan 1. Chest pain: Resolved. Status post cardiac catheterization. Patient does have coronary artery disease. Pain is likely anginal secondary to hypertension. Continue aspirin, blood pressure control, statin. 2. Malignant hypertension: Blood pressure remains elevated this morning. It was well controlled overnight. Nitroglycerin drip discontinued yesterday afternoon. Continue lisinopril, metoprolol, amlodipine. The patient had recently been started on clonidine and lisinopril by her PCP, and states that she had not missed any doses recently. 3. Coronary artery disease: Continue statin, aspirin, blood pressure control. 4. DVT prophylaxis: ZORAN Vega. Discharge Planning Plan for discharge home when cleared by cardiology. Phu Pratt MD August 02, 2016 08:37
[2016-08-02] MEDS ORDERED: amLODIPine BESYLATE 5 MG TAB PO SCH (09:00)
[2016-08-02] MEDS: SODIUM CHLORIDE 0.9% FLUSH 10 ML FLUSH SCH (09:00)
[2016-08-02] MEDS: METOPROLOL TARTRATE 25 MG TAB PO SCH (09:45)
[2016-08-02] MEDS: ASPIRIN 81 MG CHEW TAB CHEW SCH (09:45)
[2016-08-02] MEDS: LISINOPRIL 10 MG TAB PO SCH (09:45)
--- NOTE | 2016-08-02 12:17 | PD.CARD.PN ---
Subjective Subjective Remarks No chest pain, doing well off nitro drip Objective Medications Current Medications Medications (Trade) Dose Ordered Sig/Indu Route Start Time Stop Time Status Last Admin (NS Flush) 2 ml UNSCH PRN IVF 07/31/16 21:00 (NS Flush) 2 ml BID .XX 08/01/16 09:00 08/01/16 20:12 (Percocet 5-325 Mg) 1 tab Q4H PRN PO 07/31/16 23:00 08/01/16 18:12 (Percocet 5-325 Mg) 2 tab Q4H PRN PO 07/31/16 23:00 Ondansetron HCl 4 mg 4 mg Q4H PRN IV 07/31/16 23:00 08/01/16 18:13 (Nitroglycerin-Dextrose Inj) 250 ml @ 0 mls/hr TITRATE IV 07/31/16 23:00 (Aspirin Chew) 81 mg DAILY CHEW 08/01/16 09:00 08/02/16 09:45 (Lopressor) 25 mg Q12HR PO 07/31/16 23:00 08/02/16 09:45 (Lipitor) 40 mg HS PO 07/31/16 23:00 08/01/16 20:11 (Prinivil) 10 mg DAILY PO 08/01/16 09:00 08/02/16 09:45 (Norvasc) 5 mg DAILY PO 08/02/16 09:00 08/02/16 09:45 (Apresoline Inj) 10 mg Q4HR PRN IV PUSH 08/01/16 11:00 08/01/16 18:27 Vital Signs / I&O Vital Signs Date Time Temp Pulse Resp B/P Pulse Ox O2 Delivery O2 Flow Rate FiO2 08/02/16 11:56 61 08/02/16 11:10 97.8 60 15 158/93 97 08/02/16 11:00 62 08/02/16 10:00 68 08/02/16 09:00 76 08/02/16 08:44 98.9 68 15 143/100 99 08/02/16 08:00 80 08/02/16 07:40 67 08/02/16 06:00 64 08/02/16 05:00 63 08/02/16 04:00 61 08/02/16 03:00 64 08/02/16 03:00 97.9 78 20 115/92 98 08/02/16 02:00 64 08/02/16 01:00 60 08/02/16 00:00 66 08/01/16 23:00 98.5 71 20 133/86 98 08/01/16 23:00 73 08/01/16 22:00 80 08/01/16 21:00 72 08/01/16 20:09 18 08/01/16 20:00 98.3 75 18 154/98 99 08/01/16 20:00 73 08/01/16 19:00 72 08/01/16 18:00 70 08/01/16 17:00 64 08/01/16 16:00 72 08/01/16 15:00 65 08/01/16 15:00 98.0 64 16 128/82 97 08/01/16 14:00 70 08/01/16 13:00 68 I/O 08/01/16 08/01/16 08/01/16 08/02/16 08/02/16 08/02/16 07:00 15:00 23:00 07:00 15:00 23:00 Intake Total 480 ml 720 ml 360 ml Output Total 850 ml Balance -370 ml 720 ml 360 ml Intake Oral 480 ml 720 ml 360 ml Output Urine Total 850 ml # Voids 4 2 # Bowel Movements 1 0 Physical Exam GENERAL: NAD, AAOx3 SKIN: Warm and dry. HEAD: Atraumatic. Normocephalic. EYES: Pupils equal and round. No scleral icterus. No injection or drainage. ENT: No nasal bleeding or discharge. Mucous membranes pink and moist. NECK: Trachea midline. No JVD. CARDIOVASCULAR: Regular rate and rhythm. RESPIRATORY: No accessory muscle use. Clear to auscultation. Breath sounds equal bilaterally. GASTROINTESTINAL: Abdomen soft, non-tender, nondistended. Hepatic and splenic margins not palpable. MUSCULOSKELETAL: Extremities without clubbing, cyanosis, or edema. No obvious deformities. Right femoral no hematoma/bruit, neurovascularly intact distally NEUROLOGICAL: Awake and alert. No obvious cranial nerve deficits. Motor grossly within normal limits. Five out of 5 muscle strength in the arms and legs. Normal speech. PSYCHIATRIC: Appropriate mood and affect; insight and judgment normal. Assessment and Plan Problem List: (1) Malignant hypertension (2) Elevated troponin (3) Angina pectoris (4) Tobacco abuse (5) Coronary artery disease Assessment and Plan 1) Angina due to extensive HTN with coronary bridging 2) Blood pressure control, nitro drip off 3) EF 60-65% 4) Continue ASA 5) Lopressor for coronary bridging for longer diastolic filling 6) Cardiovascularly stable for discharge, will follow up with primary on Saturday as scheduled, will call my office for possible follow up Yosi Casiano DO August 02, 2016 12:17
[2016-08-02] MEDS ORDERED: METO25TA3 PO (13:08)
[2016-08-02] MEDS ORDERED: LISI10TA3 PO (13:08)
[2016-08-02] MEDS ORDERED: AMLO10TA2 PO (13:08)
[2016-08-02] MEDS ORDERED: ATOR40TA16 PO (13:08)
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
== END 2016-08-02 15:00 | disposition home or self-care (01) | DRG 287 ==
LOC: NEPC 20:31 → NEDA 21:44 → HCIN 23:00 → HCIS 08-01 18:57
PROVIDERS: ADMIT Family Medicine; ATTEND Family Medicine
PROC: B2151ZZ Fluoroscopy of Left Heart using Low Osmolar Contrast (ICD-10-PCS; principal; 2016-07-31)
PROC: B2111ZZ Fluoroscopy of Multiple Coronary Arteries using Low Osmolar Contrast (ICD-10-PCS; 2016-07-31)
PROC: 4A023N7 Measurement of Cardiac Sampling and Pressure, Left Heart, Percutaneous Approach (ICD-10-PCS; 2016-07-31)
PROC: 3E083GC Introduction of Other Therapeutic Substance into Heart, Percutaneous Approach (ICD-10-PCS; 2016-07-31)
DX: I11.9 Hypertensive heart disease without heart failure (principal); Q24.5 Malformation of coronary vessels; N30.10 Interstitial cystitis (chronic) without hematuria; I25.118 Atherosclerotic heart disease of native coronary artery with other forms of angina pectoris; I10 Essential (primary) hypertension; F17.210 Nicotine dependence, cigarettes, uncomplicated; M79.7 Fibromyalgia; Z82.49 Family history of ischemic heart disease and other diseases of the circulatory system
CPT/HCPCS: 71010; 80048; 80307; 81001; 82310; 82435; 82550; 82565; 82947; 83735; 83880; 84132; 84295; 84484; 84520; 84703; 85002; 85025; 85610; 85730; 87641; 93005; 93306; 93458; 96374; C1769; C1887; C1893; J0360; J1644; J2250; J2270; J2405; J3010; J7030; Q9967

== ENCOUNTER → 2016-08-22 | Outpatient (CLI) | payer OTHER ==
[~2016-08-22] MED LIST changes: +AMLO10TA2 PO; -ARIP1TAB5; +ATOR40TA16 PO; -LEXA10TA; +LISI10TA3 PO; +METO25TA3 PO; -MUSCLE RELAXANT; -Z.0.UNKNOWN
--- NOTE | 2016-08-22 09:19 | RADRPT ---
EXAM DATE/TIME: 08/22/2016 09:07 [facility] COMPARISON: No previous studies available for comparison. INDICATIONS : Abdominal pain and diarrhea. MEDICAL HISTORY : None. SURGICAL HISTORY : None. ENCOUNTER: Initial ACUITY: >1 year PAIN SCORE: 10/10 LOCATION: Bilateral lower quadrant abdomen. FINDINGS: Supine and upright views of the abdomen were performed. The abdominal bowel gas pattern is normal. No air fluid levels are seen. No abnormal masses, calcifications, or organomegaly is seen. The visu alized lower lungs are clear. No evidence of free intraperitoneal gas. The osseous structures demon strate dextroscoliosis centered at L2. Numerous phleboliths are noted in the pelvis. CONCLUSION: Nonobstructive bowel gas pattern. Ruy Daily MD on August 22, 2016 at 9:17 Board Certified Radiologist. This report was verified electronically.
== END ==
LOC: HECH 07:57
PROVIDERS: ATTEND Family Medicine
DX: R01.1 Cardiac murmur, unspecified (principal)
CPT/HCPCS: 74020; 93306

== ENCOUNTER → 2016-09-18 | Outpatient (CLI) | payer OTHER ==
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
== END ==
LOC: HRAD 10:39
PROVIDERS: ATTEND Family Medicine
DX: M54.5 Low back pain (principal)
CPT/HCPCS: 72110

== ENCOUNTER 2017-05-11 21:00 | Emergency (ER) | payer OTHER ==
[~2017-05-11] VITALS: Ht 154.9 cm; Wt 64.0 kg
[2017-05-11 21:02] VITALS: BP 181/123; PULSE 137; RESP 20; TEMP 98.4; O2SAT 99
[2017-05-11] MEDS ORDERED: ONDANSETRON HCL 4 MG/2 ML VIAL IV PUSH ONE (22:00)
[2017-05-11] MEDS ORDERED: MORPHINE SULFATE 2 MG/ML INJ IV PUSH ONE ×2 (22:00→23:45)
[2017-05-11] MEDS ORDERED: KETOROLAC TROMETHAMINE 30 MG/ML (IVP) VIAL IV PUSH ONE (22:00)
--- NOTE | 2017-05-11 22:19 | PD ---
HPI Chief Complaint: Flank/Kidney Pain Time Seen by Provider: 21:50 Travel History International Travel<30 days: No Contact w/Intl Traveler<30days: No Traveled to known affect area: No History of Present Illness HPI 47-year-old female that presents to the ED for evaluation of left flank pain. Per patient she's had this left flank pain for a couple of weeks. Per patient she denies any injury and she does state that she has chronic back problems but in the lower back. Per patient she gets back pain secondary to her work but denies any particular injury. She does remember that about a couple weeks ago she did fell and hit her back. Per patient she went to see her doctor who prescribed her some antibiotics to cover for urinary infection but states that it has not helped. Per patient was given something for pain but has not helped. Per patient the pain became more severe the past couple of days. She' s been able to deal with it but today has become more excruciating. Per patient the pain is 8 out of 10. She can barely sit still secondary to the pain. Denies any numbness, tingling, weakness. No surgeries to her back. Denies any imaging to her back recently. No other medical issues. No history of kidney stones. No urinary or bowel movement issues per patient. PFSH Past Medical History Arthritis: Yes Blood Disorders: No Bipolar Disorder: Yes Anxiety: Yes Depression: Yes Cancer: No Cardiovascular Problems: Yes Diminished Hearing: No Endocrine: No Fibromyalgia: Yes Genitourinary: No Hypertension: Yes Immune Disorder: No Musculoskeletal: Yes (BULDGING DISCS) Neurologic: Yes (FIBROMYALGIA) Psychiatric: Yes Reproductive: No Respiratory: No Tetanus Vaccination: > 5 Years ?: Not LMP: 2-3-17 : 2 Para: 2 Miscarriage: 0 : 0 Tubal Ligation: Yes Past Surgical History Arteriovenous Shunt: No Gynecologic Surgery: Yes (TUBAL LIGATION) Insulin Pump: No Pacemaker: No Other Surgery: No Social History Alcohol Use: Yes (2-3 times per week 2-3 drinks at a time) Tobacco Use: No Substance Use: No Allergies-Medications (Allergen,Severity, Reaction): Coded Allergies: No Known Allergies (Verified , 01/12/07) Reported Meds & Prescriptions Reported Meds & Active Scripts Active Metoprolol Tartrate 25 Mg Tab 25 Mg PO Q12HR Lisinopril 10 Mg Tab 10 Mg PO DAILY Review of Systems Except as stated in HPI: all other systems reviewed are Neg Physical Exam Narrative GENERAL: SKIN: Warm and dry. HEAD: Atraumatic. Normocephalic. EYES: Pupils equal and round. No scleral icterus. No injection or drainage. ENT: No nasal bleeding or discharge. Mucous membranes pink and moist. NECK: Trachea midline. No JVD. CARDIOVASCULAR: Regular rate and rhythm. RESPIRATORY: No accessory muscle use. Clear to auscultation. Breath sounds equal bilaterally. GASTROINTESTINAL: Abdomen soft, non-tender, nondistended. Hepatic and splenic margins not palpable. MUSCULOSKELETAL: Extremities without clubbing, cyanosis, or edema. No obvious deformities. Full range of motion of the upper and lower extremities bilaterally. Patient has no obvious lumbar, thoracic, cervical spine to palpation but she does have significant discomfort on the left mid back. Around the CVA area. Very tender to touch in this area. No obvious deformity noted. Sensation intact bilaterally. 2+ pulses bilaterally. Gait normal. NEUROLOGICAL: Awake and alert. No obvious cranial nerve deficits. Motor grossly within normal limits. Five out of 5 muscle strength in the arms and legs. Normal speech. PSYCHIATRIC: Appropriate mood and affect; insight and judgment normal. Data Data Last Documented VS Vital Signs Date Time Temp Pulse Resp B/P (MAP) Pulse Ox O2 Delivery O2 Flow Rate FiO2 05/11/17 21:02 98.4 137 20 181/123 (142) 99 Orders Orders Complete Blood Count With Diff (05/11/17 21:55) Urinalysis - C+S If Indicated (05/11/17 21:55) Ct Abd/Pel W/O Iv Contrast (05/11/17 21:55) Iv Access Insert/Monitor (05/11/17 21:55) Morphine Inj (Morphine Inj) (05/11/17 22:00) Ondansetron Inj (Zofran Inj) (05/11/17 22:00) Ketorolac Inj (Toradol Inj) (05/11/17 22:00) Comprehensive Metabolic Panel (05/11/17 21:55) Lipase (05/11/17 21:55) MDM Medical Decision Making Medical Screen Exam Complete: Yes Emergency Medical Condition: Yes Medical Record Reviewed: Yes Differential Diagnosis Back pain versus kidney stone versus pyelonephritis versus UTI versus muscle strain versus muscle spasm Narrative Course 47-year-old female that presents to the ED for evaluation of flank pain. Patient was properly examined and was found to have signs and symptoms of unclear but likely musculoskeletal in nature. Labs and imaging were ordered. IV was started and IV pain medications given. patient was found to be somewhat tachycardic, likely from discomfort. She has no chest pain. Will reasses. Case signed out to my attending pending disposition. Jose R Singh May 11, 2017 22:19
[2017-05-11 22:41] LABS: BILIRUBIN, URINE NEG (NEG); BLOOD, URINE NEG (NEG); GLUCOSE,URINE NEG (NEG); KETONE, URINE NEG (NEG); MUCUS URINE FEW /lpf (OCC); NITRITE,URINE NEG (NEG); SQUAMOUS EPITHELIAL CELL URINE 2 /hpf (0-5); URINE COLOR YELLOW (YELLW/STRAW); URINE LEUKOCYTE ESTERASE NEG (NEG)
[2017-05-11 22:43] LABS: BASOPHIL # 0.1 TH/MM3 (0-0.2); BASOPHIL % 0.9 % (0.0-2.0); EOSINOPHIL # 0.1 TH/MM3 (0-0.4); EOSINOPHIL % 0.7 % (0.0-4.0); HEMATOCRIT 43.5 % (35.0-46.0); HEMOGLOBIN 15.2 GM/DL (11.6-15.3); LYMPH % 31.9 % (9.0-44.0); LYMPHOCYTE # 2.6 TH/MM3 (1.0-4.8); MEAN CORPUSCULAR HEMOGLOBIN 32.9 PG (27.0-34.0); MEAN PLATELET VOLUME 10.8 FL (7.0-11.0); MONO % 6.3 % (0.0-8.0); MONOCYTE # 0.5 TH/MM3 (0-0.9); NEUT % 60.2 % (16.0-70.0); PLATELET COUNT 244 TH/MM3 (150-450); RED BLOOD COUNT 4.62 MIL/MM3 (4.00-5.30); RED CELL DISTRIBUTION WIDTH 13.7 % (11.6-17.2); WHITE BLOOD COUNT 8.2 TH/MM3 (4.0-11.0)
[2017-05-11 22:50] VITALS: BP 144/97; PULSE 122; RESP 16; O2SAT 98
--- NOTE | 2017-05-11 22:50 | PD ---
Physical Exam Date Seen by Provider: May 11, 2017 Time Seen by Provider: 22:48 Narrative accepted in transfer of care Data Data Last Documented VS Vital Signs Date Time Temp Pulse Resp B/P (MAP) Pulse Ox O2 Delivery O2 Flow Rate FiO2 05/12/17 01:03 92 05/11/17 22:50 16 98 05/11/17 21:02 98.4 Orders Orders Complete Blood Count With Diff (05/11/17 21:55) Urinalysis - C+S If Indicated (05/11/17 21:55) Ct Abd/Pel W/O Iv Contrast (05/11/17 21:55) Iv Access Insert/Monitor (05/11/17 21:55) Morphine Inj (Morphine Inj) (05/11/17 22:00) Ondansetron Inj (Zofran Inj) (05/11/17 22:00) Ketorolac Inj (Toradol Inj) (05/11/17 22:00) Comprehensive Metabolic Panel (05/11/17 21:55) Lipase (05/11/17 21:55) Sodium Chlorid 0.9% 500 Ml Inj (Ns 500 M (05/11/17 23:45) Morphine Inj (Morphine Inj) (05/11/17 23:45) Ed Discharge Order (05/12/17 01:26) Labs Laboratory Tests Test 05/11/17 22:10 White Blood Count 8.2 TH/MM3 Red Blood Count 4.62 MIL/MM3 Hemoglobin 15.2 GM/DL Hematocrit 43.5 % Mean Corpuscular Volume 94.0 FL Mean Corpuscular Hemoglobin 32.9 PG Mean Corpuscular Hemoglobin Concent 35.0 % Red Cell Distribution Width 13.7 % Platelet Count 244 TH/MM3 Mean Platelet Volume 10.8 FL Neutrophils (%) (Auto) 60.2 % Lymphocytes (%) (Auto) 31.9 % Monocytes (%) (Auto) 6.3 % Eosinophils (%) (Auto) 0.7 % Basophils (%) (Auto) 0.9 % Neutrophils # (Auto) 5.0 TH/MM3 Lymphocytes # (Auto) 2.6 TH/MM3 Monocytes # (Auto) 0.5 TH/MM3 Eosinophils # (Auto) 0.1 TH/MM3 Basophils # (Auto) 0.1 TH/MM3 CBC Comment DIFF FINAL Differential Comment Urine Color YELLOW Urine Turbidity CLEAR Urine pH 6.0 Urine Specific [place] 1.020 Urine Protein NEG mg/dL Urine Glucose (UA) NEG mg/dL Urine Ketones NEG mg/dL Urine Occult Blood NEG Urine Nitrite NEG Urine Bilirubin NEG Urine Urobilinogen LESS THAN 2.0 MG/DL Urine Leukocyte Esterase NEG Urine RBC LESS THAN 1 /hpf Urine WBC 1 /hpf Urine Squamous Epithelial Cells 2 /hpf Urine Mucus FEW /lpf Microscopic Urinalysis Comment CULT NOT INDICATED Blood Urea Nitrogen 12 MG/DL Creatinine 0.81 MG/DL Random Glucose 109 MG/DL Total Protein 7.7 GM/DL Albumin 3.8 GM/DL Calcium Level 9.1 MG/DL Alkaline Phosphatase 112 U/L Aspartate Amino Transf (AST/SGOT) 26 U/L Alanine Aminotransferase (ALT/SGPT) 29 U/L Total Bilirubin 0.2 MG/DL Sodium Level 143 MEQ/L Potassium Level 4.3 MEQ/L Chloride Level 108 MEQ/L Carbon Dioxide Level 24.7 MEQ/L Anion Gap 10 MEQ/L Estimat Glomerular Filtration Rate 76 ML/MIN Lipase 287 U/L [facility] Medical Record Reviewed: Yes Supervised Visit with DEANA: Yes Interpretation(s) Last Impressions Abdomen/Pelvis CT 05/11/172154 Signed Impressions: Service Date/Time: Thursday, May 11, 2017 22:37 - CONCLUSION: 1. Bilateral nonobstructing renal calculi. No hydronephrosis or evidence for obstructive uropathy. No acute findings. Eloy Preston MD CBC & BMP Diagram 05/11/17 22:10 Total Protein 7.7, Albumin 3.8, Calcium Level 9.1, Alkaline Phosphatase 112, Aspartate Amino Transf (AST/SGOT) 26, Alanine Aminotransferase (ALT/SGPT) 29, Total Bilirubin 0.2 Vital Signs Date Time Temp Pulse Resp B/P (MAP) Pulse Ox O2 Delivery O2 Flow Rate FiO2 05/12/17 01:03 92 05/11/17 22:50 122 16 144/97 (113) 98 05/11/17 21:02 98.4 137 20 181/123 (142) 99 Differential Diagnosis Flank pain and pyelonephritis obstructive uropathy uncontrolled hypertension Narrative Course IV access obtained specimens collected and sent for resulting patient identified to be hypertensive and tachycardic reports taking blood pressure medication with difficult to control hypertension; patient has been administered morphine Zofran and Toradol Urinalysis is within normal limits CT abdomen pelvis kidney stone protocol At 1:30 AM pain is relieved vital signs have improved imaging study reveals no acute process lab values were found to be in normal range patient is stable for outpatient management and close follow-up with her primary care provider Diagnosis Primary Impression: Left flank pain Additional Impressions: Musculoskeletal back pain Hypertension Referrals: Primary Care Physician 2 days Patient Instructions: General Instructions, Narcotic given in the ED Additional Instruction: Use moist heat to area as needed Take medications as prescribed avoid overuse of narcotic medication be aware narcotics can cause impaired judgment delayed reaction time increased risk for fall and constipation Take muscle relaxant as prescribed as needed do not drink alcoholic beverages with this medication Recommend ibuprofen 600 mg as often as every 6-8 hours for pain associated with inflammation Follow-up with your primary care provider Continue blood pressure medication as chronically prescribed Med/Other Pt SpecificInfo: Prescription(s) given Scripts Oxycodone-Acetaminophen (Percocet) 5-325 mg Tab 1 TAB PO Q6H Y for PAIN, #5 TAB 0 Refills Prov: Sada Silva MD 05/12/17 Methocarbamol (Robaxin) 750 Mg Tab 750 MG PO Q6HR for Muscle Spasm, #12 TAB 0 Refills Prov: Sada Silva MD 05/12/17 Disposition: 01 DISCHARGE HOME Condition: Stable Sada Silva MD May 11, 2017 22:50
--- NOTE | 2017-05-11 23:07 | RADRPT ---
EXAM DATE/TIME: 05/11/2017 22:37 [place] COMPARISON: No previous studies available for comparison. INDICATIONS : Left flank pain x1 week. ORAL CONTRAST: No oral contrast ingested. RADIATION DOSE: 9.3 CTDIvol (mGy) MEDICAL HISTORY : Hypertension. Fibromyalgia. SURGICAL HISTORY : Tubal ligation. ENCOUNTER: Initial ACUITY: 1 week PAIN SCALE: 5/10 LOCATION: Left flank TECHNIQUE: Volumetric scanning of the abdomen and pelvis was performed. Using automated exposure control and ad justment of the mA and/or kV according to patient size, radiation dose was kept as low as reasonably achievable to obtain optimal diagnostic quality images. DICOM format image data is available electro nically for review and comparison. FINDINGS: Lung bases are clear. There are nonobstructing calculi in both kidneys. On the right side these measu re about 2 mm in the upper pole and 3 mm in midpole. On the left side there is a linear 3 mm calcific ation in the lower pole. Tiny 1 mm calcification upper pole left kidney. No hydronephrosis. Numerous calcifications in the pelvis appear to be vascular. No acute findings in the liver, spleen, adrenals or pancreas. No calcified gallstones or biliary duct al dilatation. No free fluid or free air. No bowel obstruction. Appendix normal. CONCLUSION: 1. Bilateral nonobstructing renal calculi. No hydronephrosis or evidence for obstructive uropathy. No acute findings. Eloy Preston MD on May 11, 2017 at 22:58 Board Certified Radiologist. This report was verified electronically.
[2017-05-11 23:10] LABS: ALT (GPT) 29 U/L (10-53)
[2017-05-11 23:12] LABS: ALBUMIN 3.8 GM/DL (3.4-5.0); ALKALINE PHOSPHATASE 112 U/L (45-117); AST (GOT) 26 U/L (15-37); BICARBONATE 24.7 MEQ/L (21.0-32.0); BLOOD UREA NITROGEN 12 MG/DL (7-18); CALCIUM 9.1 MG/DL (8.5-10.1); CHLORIDE 108 MEQ/L (98-107); CREATININE 0.81 MG/DL (0.50-1.00); GLOMERULAR FILTRATION RATE 76 ML/MIN (>89); GLUCOSE,RANDOM 109 MG/DL (74-106); SODIUM (NA) 143 MEQ/L (136-145); TOTAL BILIRUBIN ADULT 0.2 MG/DL (0.2-1.0); TOTAL PROTEIN 7.7 GM/DL (6.4-8.2)
[2017-05-11] MEDS ORDERED: SODIUM CHLORID 0.9% 500 ML INJ 500 ML IV ONE (23:45)
[2017-05-12 01:03] VITALS: PULSE 92
[2017-05-12] MEDS ORDERED: PERC5TAB12 PO (01:30)
[2017-05-12] MEDS ORDERED: ROBA750T PO (01:30)
[2017-05-12 02:09] VITALS: BP 164/99
== END 2017-05-12 02:10 | disposition home or self-care (01) ==
LOC: NEPC 21:00
DX: R10.9 Unspecified abdominal pain (principal); I10 Essential (primary) hypertension; N20.0 Calculus of kidney; R00.0 Tachycardia, unspecified; M79.7 Fibromyalgia
CPT/HCPCS: 74176; 80053; 81001; 83690; 85025; 96361; 96374; 96375; 96376; 99284; J1885; J2270; J2405; J7040